=== PATIENT | male | born 1950 | race Caucasian/White ===

== ENCOUNTER 2016-08-31 06:59 | Day surgery (SDC) | payer BC ==
[~2016-08-31] VITALS: Ht 186.7 cm; Wt 117.1 kg
--- NOTE | ~2016-08-31 | OR ---
PATIENT'S NAME: JARRETT GARCIA [facility] AGE: 66 Y [address] ROOM: [place] [address] LOCATION: [facility] ADMIT DATE: 08/31/2016 OR/Procedure Report DISCHARGE DATE: 08/31/2016 FAMILY PHYSICIAN: TAYLOR MEJIA MD ATTENDING PHYSICIAN: GYPSY STEINBERG SURGEON: Gypsy Steinberg MD BLAST FURNACE KEEPER: Rubin Cardenas PA-C DATE OF PROCEDURE: 08/31/2016 PREOPERATIVE DIAGNOSES: 1. Left gastrocnemius equinus/shortened Achilles tendon. 2. Severe hallux valgus with hallux rigidus. 3. Metatarsalgia. 4. Second hammertoe. 5. Plantar medial diabetic pressure sore, great toe. POSTOPERATIVE DIAGNOSES: 1. Left gastrocnemius equinus/shortened Achilles tendon. 2. Severe hallux valgus with hallux rigidus. 3. Metatarsalgia. 4. Second hammertoe. 5. Plantar medial diabetic pressure sore, great toe. PROCEDURES PERFORMED: 1. Left gastrocnemius recession procedure. 2. Left first metatarsophalangeal joint fusion. 3. Second hammertoe correction. 4. Second metatarsal Lavern osteotomy. 5. [place] of autogenous calcaneus bone graft. 6. Debridement of diabetic great toe ulcer, left foot. 7. Use of intraoperative fluoroscopy, less than one hour. ANESTHESIA: General endotracheal anesthesia with peripheral nerve block. FLUIDS: See anesthesia report. ESTIMATED BLOOD LOSS: Minimal. TOURNIQUET: Left proximal thigh, 250 mmHg. SPECIMENS: None. COMPLICATIONS: None. DISPOSITION: Stable, in PACU. PATIENT'S NAME: JARRETT GARCIA [facility] AGE: 66 Y [address] ROOM: [place] [address] LOCATION: [facility] ADMIT DATE: 08/31/2016 OR/Procedure Report DISCHARGE DATE: 08/31/2016 FAMILY PHYSICIAN: TAYLOR MEJIA MD ATTENDING PHYSICIAN: GYPSY STEINBERG COUNTS: All counts were correct. IMPLANTS: 1. [place] left first MTP joint fusion system plate and screws. 2. [place] Smart Toe for second hammertoe correction. 3. [place] 3.0 fully threaded screw for second metatarsal Lavern osteotomy. INDICATIONS: Mr. Garcia is a pleasant, 66-year-old gentleman who underwent the noted procedures above. The risks, benefits, and alternatives to surgical intervention were discussed with the patient in detail. I marked the left lower extremity, indicating the correct surgical site. Anesthesia was consulted for their perioperative evaluation of the patient. OPERATIVE REPORT IN DETAIL: The patient was taken from the holding area to the operating room. A time-out was performed. General endotracheal anesthesia was administered. The patient was positioned supine with a bump under the hip and bone foam on the leg. The left lower extremity was then prepped and draped in the sterile fashion. I turned my attention to the left foot. An Esmarch was used to exsanguinate the limb, and the tourniquet was inflated to 250 mmHg. The diabetic pressure ulcer was covered with an adhesive Ioban, to address later. I turned my attention to the medial aspect of the patient's leg. I began with a medial incision through skin and subcutaneous tissue. I dissected through the fascia of the medial aspect of the leg and identified the gastrocnemius aponeurosis. I performed a gastrocnemius recession. My sourcing assistant, Rubin Cardenas PA-C, placed a hyperdorsiflexion movement on the leg, and we achieved approximately 1 cm of excursion at the gastrocnemius and improved the dorsiflexion of the ankle. The wound was then copiously irrigated with normal sterile saline solution and closed in layers beginning with 0 Vicryl suture, followed by 2-0 Vicryl suture, and kiara to approximate the skin. I then turned my attention to the lateral aspect of the hindfoot. I made a small incision over the calcaneus through skin and subcutaneous tissue down to bone. I used a curette to harvest bone graft from the calcaneus for use at my first MTP joint fusion. The wound was then copiously irrigated and closed with 3-0 nylon suture. I turned my attention to the great toe. There was severe hallux valgus deformity with limited range of motion of the first MTP joint. I made a dorsal medial incision through skin and subcutaneous tissue. I retracted the EHL tendon laterally. I subsequently incised the joint and identified the first MTP joint. Using cup and cone reamers, I subsequently shaped and contoured the metatarsal head. I introduced intraoperative fluoroscopy and PATIENT'S NAME: GERMAINE JARRETT [facility] AGE: 66 Y [address] ROOM: [id number] [place], [place] [address] LOCATION: [facility] ADMIT DATE: 08/31/2016 OR/Procedure Report DISCHARGE DATE: 08/31/2016 FAMILY PHYSICIAN: TAYLOR MEJIA MD ATTENDING PHYSICIAN: GYPSY STEINBERG confirmed the placement and size of the re-contouring of the first metatarsal head. I then repeated this for the proximal phalanx. I drilled holes on either side of the metatarsal and proximal phalanx to allow for bony bleeding. The wound was then copiously irrigated with a normal sterile saline solution. I then subsequently introduced the harvested calcaneus bone graft into the fusion site. I then introduced my dorsal plate, drilled for my lag screw hole, placed 2 screws proximally to seat the plate in the first metatarsal, performed my reduction and external rotation maneuver of the proximal phalanx to adjust the position of the reduction, subsequently drilled for, placed my compression screw, and then locked the proximal phalanx distally. I confirmed this using intraoperative fluoroscopy. I confirmed that the reduction of the first MTP joint was anatomic and securely fastened. The wound was then copiously irrigated with normal sterile saline solution and closed in layers beginning with 0 Vicryl suture to approximate the capsule of the first MTP joint, followed by 2-0 Vicryl suture and 3-0 Vicryl suture to approximate the subcutaneous tissue. I turned my attention to the second toe. There was a second hammertoe that was dorsally dislocated and overriding the great toe. I performed a longitudinal incision over the second toe down at the second metatarsal head. I dissected around skin and subcutaneous tissue. I resected the dorsum of the capsule. I performed a hammertoe correction of the second toe. I introduced my Smart Toe implant, and I confirmed its position fluoroscopically and found that I successfully performed a second hammertoe correction, and the implant was well-seated. I then performed a medial capsular release at the second MTP joint to prevent overriding of the second toe over the great toe. Using an oscillating saw, I performed my second metatarsal Lavern osteotomy and removed a dorsal wedge of bone to prevent excessive plantar flexion after shortening the metatarsal. I drilled for and placed a SuperGen 12 mm long fully threaded screw in order to secure the metatarsal head in place. I used the oscillating saw to remove the dorsal ridge of bone. I found that after the Lavern osteotomy, the toe was no longer dorsally subluxating. I used a Synthes 0.062 K-wire to pin the toe in the neutral position. I cut the pin and placed a cap on top of it. The wound was then copiously irrigated with a normal sterile saline solution and closed in layers beginning with 2-0 Vicryl, followed by 3- 0 Vicryl suture. Final fluoroscopic images were taken revealing a successful first MTP joint fusion, second hammertoe correction, and second Lavern osteotomy. The skin was approximated using 3-0 nylon suture in interrupted horizontal mattress fashion. Next, sterile dressings were placed in the form of Xeroform, 4x4, and Webril. The tourniquet was then let down. All of the toes reperfused well. The patient was then placed into a well-padded short-leg splint with the ankle PATIENT'S NAME: JARRETT GARCIA [facility] AGE: 66 Y [address] ROOM: [address] [address] LOCATION: [facility] ADMIT DATE: 08/31/2016 OR/Procedure Report DISCHARGE DATE: 08/31/2016 FAMILY PHYSICIAN: TAYLOR MEJIA MD ATTENDING PHYSICIAN: GYPSY STEINBERG in neutral dorsiflexion. The patient was then transferred from the operating room table onto the stretcher, extubated, and brought to the recovery room in stable condition. There were no intraoperative complications noted. Of note, my PA, Rubin Cardenas PA-C, played an integral role in the intraoperative care of this patient. This included preoperative positioning, intraoperative expert retraction, and closing and splinting functions. IMPRESSION: The patient is status post noted procedures above. PLAN: The patient will be nonweightbearing on the left lower extremity in a short-leg splint. He has been instructed to rest, ice, and elevate the extremity going forward. Postoperative pain control in the form of Percocet and IV morphine as needed for pain. The patient will be discharged home from the PACU provided he meets PACU discharge criteria. He will follow up with me in 2 weeks for his first postoperative visit. MD AYDEN FRIED/naeem /[id number] d: 08/31/16 1522 t: 08/31/16 1618, OPERATIVE SUMMARY
[~2016-08-31 06:59] MED LIST: AMARYL4 MG PO; AMOXICILLIN500 MG PO; ASPIRIN EC325 MG PO; ASPIRIN325 MG PO; CARTIA XT180 MG PO; CENTRUM SILVER1 TAB PO; COLACE100 MG PO; DILAUDID 2MG(HYD2 MG PO; FISH OIL1000 MG PO; GLUCOPHAGE XR750 M1 PO; JANUVIA 100 MG100 MG PO; JARDIANCE25 MG PO; KEFLEX500 MG PO; LANTUS SOL100 UNIT/1 SUB-Q; LIPITOR80 MG PO; LYRICA 150MG C150 MG PO; MIRALAX17 GM PO; NITROSTAT0.4 MG SL; OMEGA 3 1,0001 EACH PO; PRAVACHOL40 MG PO; PRINIVIL (ZESTRI5 MG PO; TOPROL XL 5050 MG PO; TYLENOL EXTRA500 MG PO; VALIUM5 MG PO; XARELTO10 MG PO
[2016-08-31] MEDS ORDERED: PERCOCET 5-3251 EACH PO (13:06)
== END 2016-08-31 14:45 | disposition disaster alternative care site (69) ==
LOC: GSDC 06:59 → G3N 06:59 → GSDC 14:45
PROC: 0L8P0ZZ Division of Left Lower Leg Tendon, Open Approach (ICD-10-PCS; principal; 2016-08-31)
PROC: 0SGN07Z Fusion of Left Metatarsal-Phalangeal Joint with Autologous Tissue Substitute, Open Approach (ICD-10-PCS; 2016-08-31)
PROC: 0SRQ0JZ Replacement of Left Toe Phalangeal Joint with Synthetic Substitute, Open Approach (ICD-10-PCS; 2016-08-31)
PROC: 0Q8P0ZZ Division of Left Metatarsal, Open Approach (ICD-10-PCS; 2016-08-31)
DX: M20.42 Other hammer toe(s) (acquired), left foot (principal); M67.02 Short Achilles tendon (acquired), left ankle; M77.42 Metatarsalgia, left foot; M20.12 Hallux valgus (acquired), left foot; M20.22 Hallux rigidus, left foot; M21.6X2 Other acquired deformities of left foot; E11.621 Type 2 diabetes mellitus with foot ulcer; L89.893 Pressure ulcer of other site, stage 3; I10 Essential (primary) hypertension; E11.9 Type 2 diabetes mellitus without complications; I25.10 Atherosclerotic heart disease of native coronary artery without angina pectoris; M17.10 Unilateral primary osteoarthritis, unspecified knee; Z79.899 Other long term (current) drug therapy; Z95.5 Presence of coronary angioplasty implant and graft
CPT/HCPCS: C1713; C1776; J0690; J1100; J1885; J2001; J2405; J7030

== ENCOUNTER 2016-11-27 00:48 | Emergency (ER) | payer BC ==
--- NOTE | ~2016-11-27 | ER ---
PATIENT'S NAME: JARRETT HERRON [facility] AGE: 66 Y [address] ROOM: [place] [address] LOCATION: ED ADMIT DATE: 11/27/2016 ER/Outpatient Report DISCHARGE DATE: 11/27/2016 FAMILY PHYSICIAN: Deon Huff MD ATTENDING PHYSICIAN: Irina Arreola Time of Arrival: 0048 hours. Time of Evaluation: 0050 hours. IDENTIFICATION: A 66-year-old male. CHIEF COMPLAINT: Chest pain. HISTORY OF PRESENT ILLNESS: The patient experienced chest pressure, shortness of breath, and diaphoresis 20 minutes prior to arrival while dusting at home. He returned home from a cake auction in [place], and was helping his as they are having company tomorrow, to dust, when he developed some chest pressure, lightheadedness, and shortness of breath associated with diaphoresis. The patient does have a history of coronary artery disease with a stent 12 to 15 years ago. He states he also has a history of an irregular rapid heart rate and wondered if that was going on. He currently is pain free. He has had some increased lower extremity swelling and was planning to see Dr. Huff for that. PAST MEDICAL HISTORY: ALLERGIES: TO CELEBREX. CURRENT MEDICATIONS: 1. Metformin ER 750 mg, 2 tablets in the morning and 1 in the evening. 2. Januvia 100 mg daily. 3. Jardiance 25 mg daily. 4. Lyrica 150 mg b.i.d. 5. Lisinopril 5 mg daily. 6. Glimepiride 4 mg 2 tablets daily. 7. Cartia 180 mg XT 1 daily. 8. Atorvastatin 80 mg at bedtime. 9. Lantus 50 units at bedtime. 10. Oscar Aspirin 325 mg daily. 11. Centrum Silver 325 mg daily. 12. Fish oil 360 mg b.i.d. PATIENT'S NAME: JARRETT HERRON [facility] AGE: 66 Y [address] ROOM: [place] [address] LOCATION: ED ADMIT DATE: 11/27/2016 ER/Outpatient Report DISCHARGE DATE: 11/27/2016 FAMILY PHYSICIAN: Deon Huff MD ATTENDING PHYSICIAN: Irina Arreola MEDICAL PROBLEMS: Hypertension; diabetes mellitus, insulin requiring; hyperlipidemia; coronary artery disease; and possible history of AFib. PRIOR SURGERIES: Left knee arthroplasty in October of 2015, lithotripsy, cardiac catheterization, PTCA and stenting. FAMILY HISTORY: No pertinent family history. SOCIAL HISTORY: The patient lives here in [place]. He is . Tobacco use, denies. Alcohol use, denies. Drug use, denies. REVIEW OF SYSTEMS: All systems reviewed and negative other than what is noted in the HPI. PHYSICAL EXAMINATION: VITAL SIGNS: Weight 121.9 kg. Blood pressure 152/79, pulse 99, respirations 18, temperature 97.1, and saturations 97% on room air. GENERAL: A 66-year-old male, in no acute distress. HEENT: Head: Normocephalic, atraumatic. Ears: TMs translucent, both ears. Eyes: Pupils equal and reactive to light and accommodation. Extraocular movements intact. Nose: Mucosa pink. No lesions. Mouth: No lesions. Pharynx benign. NECK: Supple. No lymphadenopathy. LUNGS: Clear to auscultation. Breath sounds are equal. HEART: Regular rate and rhythm. ABDOMEN: Soft, nondistended, nontender. SKIN: [place], warm, and dry. No lesions or rashes noted. NEURO: No focal deficit. EXTREMITIES: 2 to 3+ lower extremity edema, left greater than right. Equivocal calf tenderness on the left. EMERGENCY DEPARTMENT COURSE: EKG: Normal sinus rhythm at 66 beats per minute. Occasional PVCs. No acute ST elevation or depression. T-wave inversion noted in lead III, it is changed when compared to previous EKG in August of 2016. D-dimer elevated at 2.05. ProBNP 310. Hemoglobin 15; hematocrit 43.7; platelets 212; white count 5.7, normal differential. INR 1.04. Sodium 137, potassium 4.1, chloride 106, CO2 of 21, BUN 17, creatinine 1.0, blood sugar 229. Liver enzymes normal. Magnesium 2.2. CPK 387, CK-MB 9.0, troponin I less than 0.040. So, it was recommended at that point with the patient's history, current symptoms this evening, and his elevated CK-MB that he be admitted for observation for serial PATIENT'S NAME: GERMAINEJARRETT [facility] AGE: 66 Y [address] ROOM: [place], [place] [address] LOCATION: [facility] ADMIT DATE: 11/27/2016 ER/Outpatient Report DISCHARGE DATE: 11/27/2016 FAMILY PHYSICIAN: Deon Huff MD ATTENDING PHYSICIAN: Irina Arreola EKG and enzymes. The patient refused such admission, so we elected to do a 90- minute EKG and enzymes. A 90-minute EKG was unchanged. 90-minute enzymes were actually improved; CK-MB 7.9, troponin I less than 0.040. With the patient's D-dimer being elevated, we did do a CT scan, PE protocol. The patient was upset at that time as he wanted to go home and did not want to have additional testing. CT PE protocol showed no evidence of PE. With his lower extremity edema, he asked what we are going to do about his legs. I did order bilateral venous Doppler, which showed no acute proximal DVT. He did have some noncompressible veins on the right lower leg below the calf. Official report is pending. IMPRESSION AND PLAN: 1. Chest pain, resolved. 2. Lower extremity edema. The patient refuses hospitalization. Lasix 40 mg daily for 7 days. Follow up with Dr. Huff next week. Follow up sooner if recurrent pain or problems. Doppler tech states there may be a clot below the knee as she is not able to compress the R peroneal vein. Continue his aspirin 325 mg daily. The patient had an appointment with Dr. Huff on Monday, but has a to go to, but agrees he will follow up next week. IRINA ARREOLA MD CAR/modl /[id number] d: 11/27/16843 t: 11/28/161950, OUTPATIENT REPORT
--- NOTE | ~2016-11-27 | ENPV ---
Vascular Lower Extremities DVT Study Procedure Demographics Patient Name JARRETT HERRON Date of Study 11/27/2016 Patient Number [id number] Gender Male Date of 1950 Age 66 Visit Number [id number] Height Accession Number [id number] Weight Room Number BSA BMI Referring Daria Parish MD Interpreting Kamar Wilson MD Physician Physician Physician Ordering Physician Elba Arevalo MD Electric Furnace Operator Bone Char Kiln Operator Tarah Venegas T, [facility] Conclusions Summary There is acute deep vein thrombosis in the right peroneal vein(s). Non-compressible peroneal veins. No evidence of deep vein thrombosis or superficial thrombophlebitis in the left lower extremity . Procedure Type of Study: Veins:Lower Extremities DVT Study, Venous Duplex Lower Extremity Bilateral. Indications for Study:Swelling. Additional Indications:Elevated D-Dimer Appropriate Use Criteria:6 Allergies - No known allergies. Patient Status:STAT. Study Location:ER. Technical Quality:Adequate visualization. - Preliminary reported to:Dr. Arreola at 0450. Velocities are measured in cm/s ; Diameters are measured in cm Right Lower Extremities DVT Study Measurements Right 2D and Doppler Measurements + + + + +------+------+ + !Location !Visualized!Compressibility!Thrombosis!Signal!Reflux!Reflux ! ! ! ! ! ! ! !(sec) ! + + + + +------+------+ + !GSV Thigh !Yes !Yes !None !Phasic! ! ! + + + + +------+------+ + !Common !Yes !Yes !None !Phasic! ! ! !Femoral ! ! ! ! ! ! ! + + + + +------+------+ + !Prox !Yes !Yes !None !Phasic! ! ! !Femoral ! ! ! ! ! ! ! + + + + +------+------+ + !Mid Femoral!Yes !Yes !None !Phasic! ! ! + + + + +------+------+ + !Dist !Yes !Yes !None !Phasic! ! ! !Femoral ! ! ! ! ! ! ! + + + + +------+------+ + !Popliteal !Yes !Yes !None !Phasic! ! ! + + + + +------+------+ + !PTV !Yes !Yes !None !Phasic! ! ! + + + + +------+------+ + !Peroneal !Yes !No !Acute !Absent! ! ! + + + + +------+------+ + Left Lower Extremities DVT Study Measurements Left 2D and Doppler Measurements + + + + +------+------+ + !Location !Visualized!Compressibility!Thrombosis!Signal!Reflux!Reflux ! ! ! ! ! ! ! !(sec) ! + + + + +------+------+ + !GSV Thigh !Yes !Yes !None !Phasic! ! ! + + + + +------+------+ + !Common !Yes !Yes !None !Phasic! ! ! !Femoral ! ! ! ! ! ! ! + + + + +------+------+ + !Prox !Yes !Yes !None !Phasic! ! ! !Femoral ! ! ! ! ! ! ! + + + + +------+------+ + !Mid Femoral!Yes !Yes !None !Phasic! ! ! + + + + +------+------+ + !Dist !Yes !Yes !None !Phasic! ! ! !Femoral ! ! ! ! ! ! ! + + + + +------+------+ + !Popliteal !Yes !Yes !None !Phasic! ! ! + + + + +------+------+ + !PTV !Yes !Yes !None !Phasic! ! ! + + + + +------+------+ + !Peroneal !Yes !Yes !None !Phasic! ! ! + + + + +------+------+ + Signature dtt: AIMEE OLVERA: 11/27/16 0435 Physician Self Edit
[~2016-11-27 00:48] MED LIST changes: +PERCOCET 5-3251 EACH PO
[2016-11-27 01:13] LABS: BASOPHIL # 0.1 K/uL (0.0-0.2); BASOPHIL % 1.2 %; EOSINOPHIL # 0.1 K/uL (0.0-0.5); EOSINOPHIL % 1.2 %; HEMATOCRIT 43.7 % (37.0-53.0); IMMATURE GRANULOCYTE % 0.5 %; LYMPHOCYTE # 1.4 K/uL (0.8-4.0); LYMPHOCYTE % 24.2 %; MCH 30.5 pg (27.0-34.0); MCHC 34.3 gm/dL (32.0-36.5); MONOCYTE # 0.7 K/uL (0.0-1.0); MONOCYTE % 12.1 %; MPV 10.1 fl (9.4-12.4); NEUTROPHIL # (ANC) 3.5 K/uL (1.4-9.0); NEUTROPHIL % 60.8 %; NRBC % 0 /100WBC (0-0.00); PLATELET COUNT 212 K/uL (150-450); RBC 4.91 M/uL (3.50-5.50); RDW-CV 13.9 % (11.9-14.6); WBC 5.7 K/uL (4.0-11.0)
[2016-11-27 01:24] LABS: INR - (THERAPEUTIC) 1.04 (0.92-1.07); PROTIME 10.9 SECONDS (9.8-11.4); PTT 31 SECONDS (25-32)
[2016-11-27 01:30] LABS: ALBUMIN 3.8 gm/dL (3.5-5.0); ALK PHOS 94 IU/L (33-138); ALT 43 IU/L (12-78); ANION GAP 14.1 (10.0-19.0); AST 32 IU/L (10-40); BLOOD UREA NITROGEN 17 mg/dL (6-24); CALCIUM 8.9 mg/dL (8.5-10.5); CHLORIDE 106 mMol/L (96-110); CO2 21 mMol/L (22-32); CPK 387 IU/L (35-332); ESTIMATED GFR (MDRD EQUATION) > 60; MAGNESIUM 2.2 mg/dL (1.8-2.6); POTASSIUM 4.1 mMol/L (3.7-5.1); SODIUM 137 mMol/L (135-145); TOTAL BILIRUBIN 0.7 mg/dL (0.0-1.5); TOTAL PROTEIN 7.5 g/dL (6.0-8.4)
[2016-11-27 03:09] LABS: CPK 363 IU/L (35-332)
== END 2016-11-27 04:57 | disposition disaster alternative care site (69) ==
LOC: GMED 00:48
PROVIDERS: Family Medicine
DX: R07.9 Chest pain, unspecified (principal); R60.0 Localized edema; E11.9 Type 2 diabetes mellitus without complications; I10 Essential (primary) hypertension; I25.10 Atherosclerotic heart disease of native coronary artery without angina pectoris; E78.5 Hyperlipidemia, unspecified; Z98.890 Other specified postprocedural states; Z95.9 Presence of cardiac and vascular implant and graft, unspecified; Z98.61 Coronary angioplasty status; Z79.82 Long term (current) use of aspirin; Z79.4 Long term (current) use of insulin; Z79.899 Other long term (current) drug therapy; Z88.6 Allergy status to analgesic agent

== ENCOUNTER → 2016-12-23 | Outpatient (CLI) | payer BC | END | disposition disaster alternative care site (69) | LOC: GRAD 13:22 | DX: R31.29 Other microscopic hematuria (principal); N20.0 Calculus of kidney; K86.89 Other specified diseases of pancreas; K57.30 Diverticulosis of large intestine without perforation or abscess without bleeding | CPT/HCPCS: Q9967 ==